=== PATIENT | female | born 1960 | race Caucasian/White ===

== ENCOUNTER → 2018-08-14 11:00 | Outpatient (CLI) | payer BC, SELFPAY ==
[2018-08-14 11:50] LABS: Basophils % 0.8 % (0.1-2.0); Eosinophils # 0.1 K/mm3 (0.0-0.4); Hematocrit 40.7 % (37.0-47.0); Hemoglobin 13.2 g/dL (12.2-16.2); Lymphocytes # 1.2 K/mm3 (0.7-4.5); Lymphocytes % 28.8 % (10-50); Mean Corpuscular HGB Conc 32.6 g/dL (31.8-35.4); Mean Corpuscular Hemoglobin 30.5 pg (27.0-31.2); Mean Corpuscular Volume 93.8 fl (81-99); Mean Platelet Volume 8.2 fl (7.4-10.4); Monocytes # 0.3 K/mm3 (0.1-1.0); Neutrophils # 2.6 K/mm3 (1.8-7.8); Neutrophils % 61.4 % (37.0-80.0); Platelet Count 208 K/mm3 (142-424); Red Blood Count 4.34 M/mm3 (4.20-5.40); Red Cell Distribution Width 13.6 % (11.5-17.5); White Blood Count 4.2 K/mm3 (4.8-10.8)
[2018-08-14 13:54] LABS: Alanine Aminotransferase 19 U/L (12-78); Albumin Level 3.8 gm/dL (3.4-5.0); Albumin/Globulin Ratio 1.2 (1.1-1.8); Alkaline Phosphatase 85 U/L (46-116); Anion Gap 14.3 mEq/L (5-15); Aspartate Amino Transferase 13 U/L (15-37); Bilirubin,Total 0.5 mg/dL (0.2-1.0); Blood Urea Nitrogen 14 mg/dL (7-18); Calcium 8.4 mg/dL (8.5-10.1); Carbon Dioxide 26 mmol/L (21.0-32.0); Chloride 105 mmol/L (98-107); Cholesterol 228 mg/dL (140-200); Creatinine,Serum 0.88 mg/dL (0.55-1.02); Estimated Glomerular Filt Rate 66 ml/min (>60); Free Thyroxine Index 2.8 ug/dL (5.93-13.13); GFR (African American) 80 ML/MIN (>60); Globulin 3.1 gm/dl (1.3-3.2); Glucose 101 mg/dL (74-106); HDL Cholesterol 46 mg/dL (29-89); LDL Cholesterol 149 mg/dL (0-130); Potassium 4.3 mmoL/L (3.5-5.1); Sodium 141 mmol/L (136-145); T4 (Thyroxine) 9.1 ug/dl (4.7-13.3); Total Protein,Serum 6.9 gm/dL (6.4-8.2); Triglycerides 167 mg/dL (30-200); Triiodothryronine (T3) Uptake 31 % (31-39); VLDL Cholesterol 33 mg/dL (0-40)
== END ==
PROVIDERS: Visit Provider Internal Medicine Adolescent Medicine
DX: E03.9 Hypothyroidism, unspecified (principal); I10 Essential (primary) hypertension; N32.81 Overactive bladder
CPT/HCPCS: 36415; 80053; 80061; 84436; 84443; 84479; 85025

== ENCOUNTER → 2019-09-07 14:13 | Outpatient (CLI) | payer BC, SELFPAY ==
--- NOTE | 2019-09-07 14:20 | XR_ITS ---
PROCEDURE: XR FOOT WT BEARING RT 3V CLINICAL INDICATION: foot pain COMPARISON: FTL3 FOOT-LT-3 VIEWS from 05/30/2017 FTR3 FOOT-RT-3 VIEWS from 05/30/2017 FINDINGS: No fracture or dislocation. No lytic or blastic change. There is normal mineralization. There are minimal osteoarthritic changes the 1st MTP joint. Prominent calcaneal spurs present as before with some calcification along the base of the spur. IMPRESSION: Mild degenerative changes. No change no acute finding Dictated by: Charlie Palomino MD 09/07/2019 15:34 Electronically signed by Charlie Palomino MD in [place] 09/07/2019 15:34
--- NOTE | 2019-09-07 14:20 | XR_ITS ---
PROCEDURE: XR FOOT WT BEARING LT 3V CLINICAL INDICATION: foot pain Left foot pain COMPARISON: FTL3 FOOT-LT-3 VIEWS from 05/30/2017 FTR3 FOOT-RT-3 VIEWS from 05/30/2017 FINDINGS: No fracture or dislocation. No lytic or blastic change. There is normal mineralization. There are mild osteoarthritic changes at the 1st MTP joint and at the navicular cuneiform joint. There is borderline pes planus. Flexion deformity involves the 2nd toe. Other findings:Coarse calcification is noted along the plantar arch posteriorly anterior to the mildly prominent calcaneal spur and may represent sequela from chronic plantar fasciitis. IMPRESSION: The degenerative changes with calcification along the plantar arch posteriorly which could be due to chronic plantar fasciitis Dictated by: Charlie Palomino MD 09/07/2019 15:30 Electronically signed by Charlie Palomino MD in [place] 09/07/2019 15:30
== END ==
PROVIDERS: PCP Internal Medicine Adolescent Medicine; Visit Provider Podiatrist
DX: M79.672 Pain in left foot (principal); M79.671 Pain in right foot
CPT/HCPCS: 73630

== ENCOUNTER → 2020-01-19 08:46 | Outpatient (CLI) | payer BC, SELFPAY ==
[2020-01-19 09:31] LABS: Basophils % 0.7 % (0.1-2.0); Eosinophils # 0.2 K/mm3 (0.0-0.4); Eosinophils % 4.5 % (0.1-12.0); Hematocrit 39.4 % (37.0-47.0); Hemoglobin 13.7 g/dL (12.2-16.2); Lymphocytes # 1.5 K/mm3 (0.7-4.5); Lymphocytes % 35.7 % (10-50); Mean Corpuscular HGB Conc 34.9 g/dL (31.8-35.4); Mean Corpuscular Hemoglobin 32.8 pg (27.0-31.2); Mean Platelet Volume 8.9 fl (7.4-10.4); Monocytes # 0.2 K/mm3 (0.1-1.0); Monocytes % 4.9 % (1.7-9.3); Neutrophils # 2.3 K/mm3 (1.8-7.8); Neutrophils % 54.1 % (37.0-80.0); Platelet Count 205 K/mm3 (142-424); Red Blood Count 4.19 M/mm3 (4.20-5.40); Red Cell Distribution Width 13.5 % (11.5-17.5); White Blood Count 4.3 K/mm3 (4.8-10.8)
[2020-01-19 10:10] LABS: Alanine Aminotransferase 11 U/L (12-78); Albumin Level 4.1 g/dl (3.5-5.0); Albumin/Globulin Ratio 1.5 (1.1-1.8); Alkaline Phosphatase 89 U/L (38-126); Anion Gap 8.9 mEq/L (5-15); Aspartate Amino Transferase 19 U/L (14-36); Bilirubin,Total 0.5 mg/dl (0.2-1.3); Blood Urea Nitrogen 16 mg/dl (7-17); Calcium 8.6 mg/dl (8.4-10.2); Carbon Dioxide 29 mmol/L (22.0-30.0); Chloride 102 mmol/L (98-107); Chol/HDL Ratio 4.2 (1-3.5); Cholesterol 222 mg/dl (140-200); Estimated Glomerular Filt Rate 57 ml/min (>60); GFR (African American) 68 ML/MIN (>60); Globulin 2.8 g/dL (1.3-3.2); Glucose 96 mg/dl (74-100); HDL Cholesterol 53 mg/dl (40-60); Potassium 3.9 mmoL/L (3.5-5.1); Sodium 136 mmol/L (136-145); Total Protein,Serum 6.9 g/dl (6.3-8.2); Triglycerides 157 mg/dl (30-150); VLDL Cholesterol 31 mg/dL (0-40)
[2020-01-19 10:45] LABS: Thyroid Stimulating Hormone 0.47 uIU/mL (0.465-4.68)
== END ==
PROVIDERS: Visit Provider Internal Medicine Adolescent Medicine
DX: E03.9 Hypothyroidism, unspecified (principal); E78.5 Hyperlipidemia, unspecified
CPT/HCPCS: 36415; 80053; 80061; 84443; 85025

== ENCOUNTER → 2020-05-18 14:31 | Outpatient (CLI) | payer BC, SELFPAY ==
--- NOTE | 2020-05-18 14:40 | MR_ITS ---
PROCEDURE: MR FOOT LT WO/W CON CLINICAL INDICATION: soft tissue mass SWELLING IN 2ND AND THIRD TOES.PAINFUL TO WALK. SYMPTOMS X2YRS. NO INJURY. COMPARISON: CR FTL3 FOOT-LT-3 VIEWS from 05/30/2017 CR XR FOOT WT BEARING LT 3V from 09/07/2019 TECHNIQUE: Routine multiplanar multi echo sequences are performed without and with gadolinium enhancement. FINDINGS: The there is a small amount fluid in the ankle joint. The ligaments and tendons appear intact. There is increased T2 signal the navicular with some sub chondral cystic changes consistent with osteoarthritic change. There is also slight increased T2 signal within the dorsal aspect of the medial cuneiform. Small amount fluid is present in the intertarsal and tarsal metatarsal region. There is focal increased T2 signal involving the proximal shaft of the 2nd and 3rd metatarsals. These areas do show some enhancement as well. Osteoarthritic changes are present at the 1st metatarsal tarsal junction. There is some focal thickening of the proximal aspect of the plantar fascia. There is some ossification noted in this region on the radiograph. IMPRESSION: 1. Osteoarthritic changes of the navicular cuneiform and talonavicular area. 2. Focal increased T2 signal of the proximal shaft of the 2nd and 3rd metatarsals which may be due to underlying stress reaction/stress fracture 3. Thickening of the proximal aspect of the plantar fascia corresponding to an area of ossification on the radiograph which could represent sequela from prior plantar fasciitis or old injury. Dictated by: Charlie Palomino MD 05/23/2020 09:05 Charlie Palomino MD in [place] 05/23/2020 09:05
--- NOTE | 2020-05-18 14:40 | MR_ITS ---
PROCEDURE: MR FOOT RT WO/W CON CLINICAL INDICATION: soft tissue mass RT FOOT SWELLING ON DORSAL ASPECT OF FOOT AROUND 2ND-4TH METATARSAL. PAINFUL TO WALK. SYMPTOMS X2YRS. NO INJURY. COMPARISON: CR FTR3 FOOT-RT-3 VIEWS from 05/30/2017 CR XR FOOT WT BEARING RT 3V from 09/07/2019 TECHNIQUE: Routine multiplanar multi echo sequences are performed without gadolinium enhancement. FINDINGS: Osteoarthritic changes are present in the midfoot with mild bone marrow edema at the navicular, cuboid, and lateral cuneiform which may be due to underlying inflammatory changes from osteoarthritic change. There is also some contrast enhancement of the soft tissues lateral to the midfoot and centrally at the inter tarsal region. Underlying inflammatory changes are considered. No fracture or dislocation. No obvious ligamentous abnormality or tendinous abnormality. No abnormal fluid collections are evident. There is a prominent calcaneal spur noted on the radiograph with some isointensity in this region on the MRI corresponding to the spur. IMPRESSION: Mild osteoarthritic changes of the midfoot with some nonspecific increased T2 signal of the tarsal bones and mild enhancement of the tarsal bones and some adjacent soft tissues nonspecific possibly related underlying inflammatory osteoarthritic changes Widening of the proximal aspect of the plantar fascia corresponding to an area of prominent calcaneal spur. Dictated by: Charlie Palomino MD 05/23/2020 09:12 Charlie Palomino MD in [place] 05/23/2020 09:12
[2020-05-18 14:50] LABS: Blood Urea Nitrogen 16 mg/dl (7-17); Estimated Glomerular Filt Rate 64 ml/min (>60); GFR (African American) 77 ML/MIN (>60)
== END ==
PROVIDERS: PCP Internal Medicine Adolescent Medicine; Visit Provider Podiatrist
DX: R22.42 Localized swelling, mass and lump, left lower limb (principal); R22.41 Localized swelling, mass and lump, right lower limb
CPT/HCPCS: 36415; 73720; 82565; 84520; A9576

== ENCOUNTER → 2020-11-10 15:50 | Outpatient (CLI) | payer BC, SELFPAY ==
[2020-11-10 16:49] LABS: Basophils % 0.7 % (0.1-2.0); Eosinophils # 0.2 K/mm3 (0.0-0.4); Eosinophils % 2.9 % (0.1-12.0); Hematocrit 39.4 % (37.0-47.0); Hemoglobin 13.6 g/dL (12.2-16.2); Lymphocytes # 1.4 K/mm3 (0.7-4.5); Lymphocytes % 28.7 % (10-50); Mean Corpuscular HGB Conc 34.5 g/dL (31.8-35.4); Mean Corpuscular Hemoglobin 31.7 pg (27.0-31.2); Mean Platelet Volume 8.3 fl (7.4-10.4); Monocytes # 0.2 K/mm3 (0.1-1.0); Monocytes % 4.2 % (1.7-9.3); Neutrophils # 3.2 K/mm3 (1.8-7.8); Neutrophils % 63.5 % (37.0-80.0); Platelet Count 206 K/mm3 (142-424); Red Blood Count 4.29 M/mm3 (4.20-5.40); Red Cell Distribution Width 13.2 % (11.5-17.5)
[2020-11-10 17:16] LABS: Alanine Aminotransferase 12 U/L (12-78); Albumin Level 4.2 g/dl (3.5-5.0); Albumin/Globulin Ratio 1.6 (1.1-1.8); Alkaline Phosphatase 77 U/L (38-126); Aspartate Amino Transferase 19 U/L (14-36); Bilirubin,Total 0.3 mg/dl (0.2-1.3); Blood Urea Nitrogen 13 mg/dl (7-17); Calcium 8.8 mg/dl (8.4-10.2); Carbon Dioxide 25 mmol/L (22.0-30.0); Chloride 107 mmol/L (98-107); Estimated Glomerular Filt Rate 73 ml/min (>60); GFR (African American) 88 ML/MIN (>60); Globulin 2.6 g/dL (1.3-3.2); Glucose 113 mg/dl (74-100); Sodium 137 mmol/L (136-145); Total Protein,Serum 6.8 g/dl (6.3-8.2)
[2020-11-10 17:47] LABS: Thyroid Stimulating Hormone 3.56 uIU/mL (0.465-4.68)
[2020-11-10 17:57] LABS: 25-OH Vitamin D, Total < 12.8 ng/mL (30-100)
[2020-11-10 18:05] LABS: Vitamin B12 374 pg/mL (239-931)
== END ==
PROVIDERS: Visit Provider Internal Medicine Adolescent Medicine
DX: E03.9 Hypothyroidism, unspecified (principal); E55.9 Vitamin D deficiency, unspecified; R53.83 Other fatigue; R53.81 Other malaise
CPT/HCPCS: 36415; 80053; 82306; 82607; 83735; 84443; 85025

== ENCOUNTER → 2021-07-26 10:54 | Outpatient (CLI) | payer BC, SELFPAY ==
--- NOTE | 2021-07-26 | CA_ITS ---
APPROVED REPORT EXAM: Comprehensive 2D, Doppler, and color-flow Echocardiogram Wood Setter: Marisa Mistry RT(R) Ht: 5 ft 4 in Wt: 226lbs BSA: 2.06 BP: 130/76 mmHg Indications: Abn EKG, HTN, palpitations, fatigue, HTN, family history of HD, preop clearance knee surgery, obesity. 2D Dimensions LVOT 2.01 cm (M/F) 1.5-2.5 LA Volume 35.60 mL LA Volume Index 17.28 mL/m2 (M/F) 16-34 M-Mode Dimensions RVDd 3.01 cm (0.9-2.6) LA Diam 3.28 cm (1.9-4.0) LVDd 3.89 cm (3.5-5.7) Ao Diam 1.94 cm (2.0-3.7) LVDs 3.16 cm (3.5-5.7) IVSd 0.82 cm (0.6-1.1) PWd 0.95 cm (0.6-1.1) EF (Teich) 39.40% FS 18.80% EDV (Teich) 65.50 mL ESV (Teich) 39.70 mL LV Diastology E Decel Time 210.00 (160-240 msec) E/A Ratio 0.7 MED E' 6.90 (< 7 cm/sec) E'/MED E' Ratio 8.83 (>14) LAT E' 7.00 (<10 cm/sec) E/LAT E' Ratio 8.70 (>14) Mitral Valve MV E Max Polo. 61.00 (40-130 cm/s) MV A Velocity 86.00 (40-130 cm/s) E/A Ratio 0.71 MV Decel. Time 210.00 (160-240 ms) MV PHT 62.00 ms Left Ventricle Technically difficult study because of the patient factors and poor acoustic windows. Left atrium is mildly enlarged, left ventricle is normal size, mild concentric left ventricular hypertrophy, visually estimated ejection fraction 55% with no obvious regional wall motion abnormality in the obtained views, endocardial surfaces are poorly visualized. Grade 1 diastolic dysfunction seen without tissue Doppler evidence of base left atrial pressure. Right Ventricle Right atrium and right ventricle are mildly enlarged with normal contractility. Aortic Valve Aortic valve is poorly visualized, Doppler is not indicative of significant aortic stenosis or aortic insufficiency. Mitral Valve Mitral leaflets are minimally thickened, there is mild mitral regurgitation. Tricuspid Valve Tricuspid valve grossly normal, there is mild tricuspid regurgitation, tricuspid regurgitation jet was inadequate for calculation of the right ventricular systolic pressure. Pulmonic Valve Pulmonic valve is poorly visualized. Great Vessels Aortic root is normal size. Inferior vena cava is poorly visualized. Pericardium No significant pericardial effusion noted. Conclusion 1. Mild biatrial enlargement, normal left ventricular size, mild concentric left ventricular hypertrophy, visually estimated ejection fraction 55% with no regional wall motion abnormality, grade 1 diastolic dysfunction seen without tissue Doppler evidence of a left atrial pressure. Endocardial surfaces are very poorly visualized. 2. Mildly enlarged right ventricle with normal contractility. 3. Mild mitral and tricuspid regurgitation. 4. No significant pericardial effusion noted. Electronically signed by : Bandar Riggins MD 07/26/2021 20:07:56
== END ==
PROVIDERS: PCP Internal Medicine Adolescent Medicine; Visit Provider Internal Medicine Adolescent Medicine
DX: I10 Essential (primary) hypertension (principal); R94.31 Abnormal electrocardiogram [ECG] [EKG]
CPT/HCPCS: 93306

== ENCOUNTER → 2021-08-08 06:37 | Outpatient (CLI) | payer BC, SELFPAY ==
--- NOTE | 2021-08-08 | CA_ITS ---
APPROVED REPORT Exam: Pharmacologic Technologist: Lashawn Davila Ht: 5 ft 4 in Wt: 209 lbs BSA: 1.99 m2 HR: 66 bpm BP: 144/73 mmHg Indications: Abnormal EKG Medical History Medications: Metoprolol,,,,, Estradiol,,,,, FluTICASONE,,,,, Levothyoxine,,,,, Stress Test Details Test: LEXISCAN HR Resting HR: 76 bpm Max Heart Rate (APMHR): 158.468899 bpm Max HR Achieved: 101 bpm Target HR (85% APMHR): 134.356313 bpm % of APMHR: 63.92 Recovery HR: 76 bpm BP Resting BP: 144.0/73.0 mmHg Max BP: 164.0/62.0 mmHg Recovery BP: 153.0/63.0 mmHg ECG Resting ECG: Normal sinus rhythm, ST abormalities inferiorly and laterally. Clinical Exercise duration: 04:00 min Highest Stage Achieved: Exercise capacity: 1.0 METs Stress ECG Conclusion Symptoms: Shortness of air, mild malaise. No chest pain. Arrhythmias/Ectopy: None ST-T Changes: Exaggeration of baseline ST abnormalities. Conclusion: Non-diagnostic Lexiscan stress. Myoview images reported separately. Electronically signed by : Bandar Riggins MD 08/08/2021 20:39:41
--- NOTE | 2021-08-08 07:16 | NM_ITS ---
APPROVED REPORT Exam: Nuclear Stress Test Indication: Abnormal EKG, Pre op, HTN, Family history Patient Location: Outpatient Stress Tech: Lashawn Davila NM Tech:Bhakti Hester, ARRT, RT (R)(N) Ht: 5 ft 4 in Wt: 209 lbs Bra Size: 34B HR: 66 bpm BP: 144/73 mmHg BSA: 1.99 m2 BMI: 35.8 History: Abnormal EKG, Pre op, HTN, Family history Procedure: Patient received a 0.4 mg of intravenous Lexiscan, resting heart rate 66 bpm, resting blood pressure 144/73 mmHg, with Lexiscan maximum heart rate achived was 90 bpm which is Less than 85 % of the maximum predicted heart rate and blood pressure was 161/72 mmHg. With Lexiscan, patient denied any complaint of chest pain. Electrocardiogram Resting electrocardiogram shows sinus rhythm, with Lexiscan there is less than 1.[address] segment depression noted from the baseline EKG. The EKG portion of the Lexiscan is nondiagnostic. Cardiac Stress and Resting SPECT Images: Cardiac Stress and Resting SPECT images were obtained using technetium 99m Myoview 32.5 mCi stress and 10.62 mCi at rest. Gated SPECT for analysis of segmental wall motion and calculation of the ejection fraction also done. Prone images were also obtained. Cardiac stress and rest SPECT images show uniform myocardial activity without segmental perfusion abnormality, computer derived ejection fraction is over 65% with no regional wall motion abnormality, there is transient ischemic dilatation of the left ventricle seen. Conclusion: 1. The EKG portion of the Lexiscan is nondiagnostic. 2. No scintigraphic evidence of reversible ischemia seen, computer derived ejection fraction over 65% with no regional wall motion abnormality, there is transient ischemic dilatation of the left ventricle seen. Raising the concern for presence of balanced ischemia, other causes for transient ischemic dilatation include hypertensive heart disease, elevated left ventricular end-diastolic pressure, diabetes mellitus and microvascular disease. Clinical correlation is recommended. 3. Abnormal Lexiscan Myoview study. Electronically signed by : Bandar Riggins MD 08/08/2021 21:04:05
--- NOTE | 2021-08-08 08:08 | HMH.ITSHM ---
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 []METOPROLOL LEVOTHYROXINE FLUTICASONE ESTRADIOL
== END ==
PROVIDERS: PCP Internal Medicine Adolescent Medicine; Visit Provider Internal Medicine Adolescent Medicine
DX: I10 Essential (primary) hypertension (principal); R94.31 Abnormal electrocardiogram [ECG] [EKG]
CPT/HCPCS: 78452; 93017; A9502; J2785

== ENCOUNTER → 2021-08-11 14:42 | Outpatient (CLI) | payer BC, SELFPAY ==
[2021-08-11 15:04] LABS: Basophils # 0.2 K/mm3 (0-0.2); Basophils % 3.3 % (0.1-2.0); Eosinophils # 0.1 K/mm3 (0.0-0.4); Eosinophils % 2.1 % (0.1-12.0); Hematocrit 43.8 % (37.0-47.0); Hemoglobin 14.4 g/dL (12.2-16.2); Lymphocytes # 1.4 K/mm3 (0.7-4.5); Lymphocytes % 27.8 % (10-50); Mean Corpuscular HGB Conc 32.8 g/dL (31.8-35.4); Mean Corpuscular Hemoglobin 31.9 pg (27.0-31.2); Mean Corpuscular Volume 97.2 fl (81-99); Mean Platelet Volume 8.9 fl (7.4-10.4); Monocytes # 0.2 K/mm3 (0.1-1.0); Monocytes % 4.7 % (1.7-9.3); Neutrophils # 3.2 K/mm3 (1.8-7.8); Neutrophils % 62.2 % (37.0-80.0); Platelet Count 249 K/mm3 (142-424); Red Cell Distribution Width 13.9 % (11.5-17.5); White Blood Count 5.2 K/mm3 (4.8-10.8)
[2021-08-11 16:48] LABS: Anion Gap 11.1 mEq/L (5-15); Blood Urea Nitrogen 11 mg/dl (7-17); Calcium 9.3 mg/dl (8.4-10.2); Carbon Dioxide 26 mmol/L (22.0-30.0); Chloride 106 mmol/L (98-107); Estimated Glomerular Filt Rate 63 ml/min (>60); GFR (African American) 77 ML/MIN (>60); Glucose 93 mg/dl (74-100); Potassium 4.1 mmoL/L (3.5-5.1); Sodium 139 mmol/L (136-145)
== END ==
PROVIDERS: Visit Provider Internal Medicine Cardiovascular Disease
DX: Z01.810 Encounter for preprocedural cardiovascular examination (principal); Z11.52 Encounter for screening for COVID-19
CPT/HCPCS: 36415; 80048; 85025; C9803; U0003; U0005

== ENCOUNTER 2021-08-12 20:43 | Emergency (ER) | payer BC, SELFPAY ==
[2021-08-12 20:47] VITALS: BP 154/74; PULSE 89; RESP 18; TEMP 37.7; O2SAT 97; BMI 36.7
[2021-08-12 21:00] VITALS: BP 154/74; PULSE 89; RESP 18; TEMP 37.7
--- NOTE | 2021-08-12 21:01 | HMH.EDUTC ---
[facility] [place] Disposition Clinical Impression: Viral syndrome, Exposure to COVID-19 virus Disposition: Home, Self-Care Condition on Discharge: Good Instructions: DI for COVID-19 (Suspected or Confirmed ), Preventing the Spread of Coronavirus Discharge Instructions Additional Instructions: Drink plenty of fluids. Take tylenol for pain or fever. Return if you begin to have difficulty breathing. Follow up with your regular doctor. GO TO THE ER FOR ANY WORSENING SYMPTOMS Quarantine until you know the results of your covid-19 test. Notify your school or workplace of your results and follow their instructions regarding return to work/school. Referrals: Rubio Han MD [Primary Care Provider] - Time of Disposition: 21:12 Medical Decision Making - Medical Records Medical records reviewed: No: I reviewed the patient's medical records. - Foreign Inquiry Pt receiving controlled substance: No Vital Signs: 08/12/21 20:47 08/12/21 21:00 Temperature 99.9 F H 99.9 F H Temperature Source Oral Pulse Rate 89 Pulse Rate [Left] 89 Respiratory Rate 18 18 Blood Pressure 154/74 H Blood Pressure [Right Arm] 154/74 H Blood Pressure Mean [Right Arm] 100 02 Sat by Pulse Oximetry 97 [facility] [place] HPI - General Stated complaint: covid test Time Seen by Provider: 08/12/21 21:00 Mode of Arrival: Ambulatory Source of Information: Patient Limitations: No Limitations Description of Symptoms (Recalled from Triage Doc. by RN): pt c/o her eyes burning and a HU. pts is covid positive. HEENT Symptoms (Recalled from RN notes): Yes (HU) Resp Symptoms (Recalled from RN notes): No Skin Symptoms (Recalled from RN notes): No MS Symptoms (Recalled from RN notes): No Functional Status (Recalled from RN notes): wnl - History of Present Illness Provider Complaint: She has been having body aches, chilling (but no documented fever), head ache, and a scratchy sore throat since last night. Her tested positive for covid-19 yesterday. - Related Data Home Medications Medication Instructions Recorded Confirmed estradiol 0.075 mg/24 hr 1 patch TOPICAL each 09/07/19 09/07/19 semiweekly transdermal patch fluticasone propionate 50 INTRANASAL 09/07/19 09/07/19 mcg/actuation nasal spray,suspension levothyroxine 112 mcg tablet 112 mcg PO DAILY tab 09/07/19 09/07/19 metoprolol succinate 25 mg 12.5 mg PO ONCE tab 08/11/21 tablet,extended release 24 hr Allergies Allergy/AdvReac Type Severity Reaction Status Date / Time SULFA (sulfonamide) Allergy Unknown Uncoded 09/07/19 13:26 - Worker's Comp Is this a Worker's Comp case?: No [facility] History - Hepatitis A Screen Drug use history?: No High risk sexual behaviors?: No History of sexually transmitted infection?: No Currently employed?: No Childcare worker?: No Do you have indoor plumbing?: Yes Do you have electricity?: Yes Attestation statement:: This patient has been screened for Hepatitis A risk factors. I have reviewed the patient's past medical history: Yes Other Medical History: Reports: Hypothyroidism Laterality Cases: Bilateral: Other Other Surgeries: Yes: Cholecystectomy, , Hysterectomy-Total, Thyroidectomy, Other Amputation: No Fractures: No - Social History Smoking Status: Never smoker Alcohol Intake: never Substance Use Type: denies use Occupational Status: retired Family Hx:: Cancer, Diabetes, Hyperlipidemia, Hypertension, Thyroid Disorder ROS Obtained: Yes All systems reviewed & no additional complaints - Constitutional Constitutional: Reports body ache, Reports chills, Denies fever(s), Reports poor appetite, Reports malaise - Eyes Eyes: Denies eye discharge - ENT Ears, Nose, Mouth, and Throat: Reports as per HPI - Cardiovascular Cardiovascular: Denies chest pain - Respiratory Respiratory: Denies chest congestion, Reports cough, Denies dyspnea, Denies stridor, Denies wheezing Physical Exam - General G
== END 2021-08-12 21:28 | disposition home or self-care (01) ==
PROVIDERS: Emergency Provider Nurse Practitioner Family; PCP Internal Medicine Adolescent Medicine
DX: U07.1 COVID-19 (principal); E03.9 Hypothyroidism, unspecified
CPT/HCPCS: 99202; C9803; G0463; U0003; U0005

== ENCOUNTER → 2021-09-30 11:52 | Outpatient (CLI) | payer BC, SELFPAY | PROVIDERS: PCP Internal Medicine Adolescent Medicine; Visit Provider Nurse Practitioner Family | DX: Z01.818 Encounter for other preprocedural examination (principal); Z11.52 Encounter for screening for COVID-19 | CPT/HCPCS: C9803; U0003; U0005 ==

== ENCOUNTER → 2023-01-18 11:46 | Outpatient (CLI) | payer BC, SELFPAY ==
[2023-01-18 12:13] LABS: Basophils % 0.5 % (0.1-2.0); Eosinophils # 0.3 K/mm3 (0.0-0.4); Eosinophils % 4.9 % (0.1-12.0); Hemoglobin 13.3 g/dL (12.2-16.2); Lymphocytes # 1.6 K/mm3 (0.7-4.5); Lymphocytes % 29.6 % (10-50); Mean Corpuscular HGB Conc 32.4 g/dL (31.8-35.4); Mean Corpuscular Volume 92.7 fl (81-99); Mean Platelet Volume 8.1 fl (7.4-10.4); Monocytes # 0.3 K/mm3 (0.1-1.0); Monocytes % 4.7 % (1.7-9.3); Neutrophils # 3.3 K/mm3 (1.8-7.8); Neutrophils % 60.4 % (37.0-80.0); Platelet Count 209 K/mm3 (142-424); Red Blood Count 4.43 M/mm3 (4.20-5.40); Red Cell Distribution Width 13.9 % (11.5-17.5); White Blood Count 5.5 K/mm3 (4.8-10.8)
[2023-01-18 13:16] LABS: Hemoglobin A1C 5.3 % (4.0-6.0)
[2023-01-18 13:17] LABS: Alanine Aminotransferase 24 U/L (12-78); Albumin Level 3.9 g/dl (3.5-5.0); Albumin/Globulin Ratio 1.6 (1.1-1.8); Alkaline Phosphatase 101 U/L (38-126); Anion Gap 12.2 mEq/L (5-15); Aspartate Amino Transferase 23 U/L (14-36); Bilirubin,Total 0.6 mg/dl (0.2-1.3); Blood Urea Nitrogen 14 mg/dl (7-17); Calcium 8.5 mg/dl (8.4-10.2); Carbon Dioxide 25 mmol/L (22.0-30.0); Chloride 108 mmol/L (98-107); Cholesterol 216 mg/dl (140-200); Estimated Glomerular Filt Rate 72 ml/min (>60); GFR (African American) 88 ML/MIN (>60); Globulin 2.5 g/dL (1.3-3.2); Glucose 105 mg/dl (74-100); HDL Cholesterol 54 mg/dl (40-60); Potassium 4.2 mmoL/L (3.5-5.1); Sodium 141 mmol/L (136-145); Total Protein,Serum 6.4 g/dl (6.3-8.2); Triglycerides 263 mg/dl (30-150); VLDL Cholesterol 53 mg/dL (0-40)
[2023-01-18 13:28] LABS: Direct LDL Cholesterol 102.85 mg/dL (100-129)
[2023-01-18 13:33] LABS: 25-OH Vitamin D, Total 32.1 ng/mL (30-100)
[2023-01-18 14:05] LABS: Vitamin B12 395 pg/mL (239-931)
[2023-01-18 15:07] LABS: Thyroid Stimulating Hormone 4.33 uIU/mL (0.465-4.68)
== END ==
PROVIDERS: PCP Internal Medicine Adolescent Medicine; Visit Provider Internal Medicine Adolescent Medicine
DX: E03.9 Hypothyroidism, unspecified (principal); I10 Essential (primary) hypertension; E55.9 Vitamin D deficiency, unspecified; Z84.89 Family history of other specified conditions; Z79.899 Other long term (current) drug therapy
CPT/HCPCS: 36415; 80053; 80061; 82306; 82607; 83036; 84443; 85025

== ENCOUNTER 2023-11-05 14:00 | Outpatient (CLI) | payer MEDICARE, BC, SELFPAY ==
--- NOTE | 2023-11-05 14:18 | CA_ITS ---
FINAL REPORT TECHNIQUE: Duplex color Doppler with spectral analysis performed of the lower extremities. CLINICAL HISTORY: CLAUDICATION,PAIN TOP OF FEET,EDEMA COMPARISON: None FINDINGS: RIGHT LOWER EXTREMITY: Velocities cm/sec: DENTAL CERAMIST ASSISTANT: 116 SFA Prox: 112 SFA Mid: 105 SFA Dist: 79 Rae: 91 AWNING HANGER: 103 SOWMYA: 64 Waveforms are triphasic proximally, biphasic at and below the popliteal artery. LEFT LOWER EXTREMITY: Velocities cm/sec: DENTAL CERAMIST ASSISTANT: 120 SFA Prox: 112 SFA Mid: 103 SFA Dist: 82 Rae: 63 AWNING HANGER: 101 SOWMYA: 42 Waveforms are triphasic proximally, biphasic at and below the popliteal artery. IMPRESSION: No significant peripheral artery disease. Reviewed, Interpreted and Dictated by Marvin Eastman MD Transcribed by Tia London Authenticated and [facility]
== END 2023-11-05 23:59 | disposition home or self-care (01) ==
LOC: RT 14:03
PROVIDERS: PCP Internal Medicine Adolescent Medicine; Visit Provider Internal Medicine Adolescent Medicine
DX: I73.9 Peripheral vascular disease, unspecified (principal)
CPT/HCPCS: 93925

== ENCOUNTER 2024-09-07 15:00 | Outpatient (RCR) | payer MEDICARE, BC, SELFPAY | END 2024-09-07 23:59 | disposition home or self-care (01) | LOC: PT 15:00 | PROVIDERS: PCP Internal Medicine Adolescent Medicine; Visit Provider Physician Assistant | DX: Z96.652 Presence of left artificial knee joint (principal) | CPT/HCPCS: 97014; 97110; 97140; 97163; 97530; G0283 ==

== ENCOUNTER 2024-10-09 10:00 | Outpatient (RCR) | payer MEDICARE, BC, SELFPAY | END 2024-10-09 23:59 | disposition home or self-care (01) | LOC: PT 10:00 | PROVIDERS: PCP Internal Medicine Adolescent Medicine; Visit Provider Physician Assistant | DX: Z96.652 Presence of left artificial knee joint (principal) | CPT/HCPCS: 97110; 97530 ==

== ENCOUNTER 2025-06-08 13:51 | Outpatient (CLI) | payer MEDICARE, BC, SELFPAY ==
--- OUTSIDE RECORDS SUMMARY | 2024-10-17 16:30 | XMS_ITS ---
Author Organization [facility] Address [address] [place] [address] Care Team Providers Care Php Software Engineer Name Role Phone Rubio Han Primary Care Provider Migration, Provider Unavailable Unavailable Allergies Allergen (clinical drug ingredient) Drug/Non Drug Allergy documented on EMR Reaction Allergy Type Onset Date Status SULFA (uncoded) Unknown Allergy Acti ve REASON FOR VISIT [facility] To [facility] Conversion Encounter Medications Medication SIG (Take, Route, Frequency, Duration) Notes Start Date End Date Status Losartan Potassium-HCTZ 100-25 MG 1 tab(s) orally once a day; Duration: 30 days Active Vitamin D (Ergocalciferol) 1.25 MG (73939 UT) 1 cap(s) orally twice weekly; Duration: 84 days Active Metoprolol Succinate ER 50 MG 1 tab(s) orally once a day; Duration: 30 days Active Synthroid 100 MCG 1 tab(s) orally once a day; Duration: 90 days Active Arthritis Pain Reliever 1 % 2 gm applied topically 4 times a day; Duration: 30 days prn Active Fluticasone Propionate 50 MCG/ACT as directed in each nostril once a day; Duration: 30 days Active Promethazine-DM 6.25-15 MG/5ML 5 mL orally every 6 hours; Duration: 10 days 09/23/2024 Active Aspirin Low Dose 81 MG 1 tab(s) orally t wice a day Active Encounters Encounter Location Date Provider Diagnosis [facility] [address] [place], [place] [address] 10/17/2024 Provider Migration Viral bronchitis J20.8 Assessments Encounter Date Diagnosis (ICD Code) Assessment Notes Treatment Notes Treatment Clinical Notes Section Notes 10/17/2024 Viral bronchitis (ICD-10 - J20.8) Plan Of Treatment Medication Medication Name Sig Start Date Stop Date Notes Losartan Potassium-HCTZ 100- 25 MG 1 tab(s) orally once a day; Duration: 30 days Fluticasone Propionate 50 MCG/ACT as directed in each nostril once a day; Duration: 30 days Promethazine-DM 6.25-15 MG/5ML 5 mL oral ly every 6 hours; Duration: 10 days 09/23/2024 Next Appt Details Provider Name:Rubio Han, 08/03/2025 04:15:00 PM, [address] [place] [address], [id number], Progress Notes * Arielle SCHULERaDOB:1960 ([age] yo F)Acc No.[id number]:10/17/2024 Patient: Alina WARD Provider: Alberto Marcial :1960 A ge:64 Y S ex:Female Date:10/17/2024 Address:[address] [place], [place] [id number] Pcp:Rubio Han Subjective: * Chief Complaints: * 1 . [facility] To [facility] Conversion Encounter. * Medical History: * Medications: T aking Aspirin Low Dose 81 MG Tablet Delayed Release 1 tab(s) orally twice a day , Taking Synthroid 100 MCG Tablet 1 tab(s) orally once a day , Taking Arthritis Pain Reliever 1 % Gel 2 gm applied topically 4 times a day , Notes to Pharmacist: prn, Taking Vitamin D (Ergocalciferol) 1.25 MG (92596 UT) Capsule 1 cap(s) orally twice weekly , Taking Metoprolol Succinate ER 50 MG Tablet Extended Release 24 Hour 1 tab(s) orally once a day * Allergies: S ULFA. Objective: * Vitals: Assessment: * Assessment: 1. V iral bronchitis - J20.8 (Primary) Plan: * Treatment: 2. O thers Start Fluticasone Propionate Suspension, 50 MCG/ACT, as directed, in each nostril, once a day, 30 days, 1, Refills 3; S tart Losartan Potassium-HCTZ Tablet, 100-25 MG, 1 tab(s), orally, once a day, 30 days, 30, Refills 1. * * Electronic signature of Prov ider Migration on 06/08/2025 at 01:56 PM EST Sign off status: Pending * Provider: Alberto shahid Migration Date: 0 10/17/2024 Generated for Morgan correa/Mahesh/Teodoroitting on: 08/08/2024 01:56 PM EST
--- OUTSIDE RECORDS SUMMARY | 2025-06-01 11:30 | XMS_ITS ---
Author Organization [facility] Address [address] [place] [address] Care Team Providers Care Modeling Teacher Name Role Phone Rubio Han Primary Care Provider [phone] Allergies Allergen (clinical drug ingredient) Drug/Non Drug Allergy documented on EMR Reaction Allergy Type Onset Date Status SULFA (uncoded) Unknown Allergy Acti ve REASON FOR VISIT med check, concerns of collarbone, constipation Medications Medication SIG (Take, Route, Frequency, Duration) Notes Start Date End Date Status Metoprolol Succinate ER 25 MG TAKE 1/2 TABLET BY MOUTH EVERY DAY; Duration: 90 Active Arthritis Pain Reliever 1 % 2 gm applied topically 4 times a day; Duration: 30 days prn Active Diclofenac Sodium 50 MG 1 tablet as need ed Orally Twice a day; Duration: 30 days 03/25/2025 Active Losartan Potassium-HCTZ 100-25 MG TAKE 1 TABLET BY MOUTH EVERY DAY; Duration: 30 Active Promethazine-DM 6.25-15 MG/5ML 5 mL orally every 6 hours; Duration: 10 days 09/23/2024 Active Acetaminophen-Codeine 300-30 MG 1 tablet as needed Orally every 6 hrs; Duration: 10 days 11/23/2024 Active Pregabalin 50 MG 1 capsule Orally twi ce a day as needed for nerve pain; Duration: 90 days 01/06/2025 Active Vitamin D (Ergocalciferol) 1.25 MG (66900 UT) 1 cap(s) orally twice weekly; Duration: 84 days Active Fluticasone Propionate 50 MCG/ACT as directed in each nostril once a day; Duration: 30 days Active Aspirin Low Dose 81 MG 1 tab(s) orally t wice a day Active Synthroid 112 MCG 1 tab(s) orally once a day; Duration: 90 days Active Ozempic (0.25 or 0.5 MG/DOSE) 2 MG/3ML as directed Subcutaneous Active Problems Problem Type SNOMED Code ICD Code Onset Dates Problem Status W/U Status Risk Notes Problem Arthritis of right hip (9777323774876 101) Arthritis of right hip (M16.11) Active confirmed Vital Signs Temperature 98 degrees Fahrenheit 06/01/2025 Blood pressure systolic 130 mm Hg 06/01/20 25 Blood pressure diastolic 80 mm Hg 025 Heart Rate 82 /min 06/01/2025 Height 5 ft 4 in in 06/01/2025 Weight 194 lbs 06/01/2025 BMI 33.3 kg/m2 06/01/2025 Encounters Encounter Location Date Provider Diagnosis [address] [address] 06/01/2025 Rubio Han Clavicle enlargement M89.319 ; Constipation, chronic K59.09 ; Morbid obesity E66.01 and Arthritis of right hip M16.11 Assessments Encounter Date Diagnosis (ICD Code) Assessment Notes Treatment Notes Treatment Clinical Notes Section Notes 06/01/2025 Clavicle enlargement (ICD-10 - M89.319) Asymmetry noted. Will check x-rays of clavicle and sternum and reevaluate. 06/01/2025 Constipation, chronic (ICD-10 - K59.09) Discussed drinking water. Discussed doing Senokot twice daily and using MiraLAX every morning with a hot beverage. She will try this. This seems to be more of a side effect of Ozempic but is manageable if she pays attention to nutrition and hydration 06/01/2025 Morbid obesity (ICD-10 - E66.01) Very successful with even low-dose semaglutide, gave samples for 2 more months and 0.25 weekly semaglutide 06/01/2025 Arthritis of right hip (ICD-10 - M16.11) Injection helped temporarily. She will call back to [facility] and see about other options for further intervention Plan Of Treatment Treatment Notes Assessment Notes Clavicle enlargement Asymmetry noted. Wi ll check x-rays of clavicle and sternum and reevaluate. Constipation, chronic Discussed drinking water. Discussed doing Senokot twice daily and using MiraLAX every morning with a hot beverage. She will try this. This seems to be more of a side effect of Ozempic but is manageable if she pays attention to nutrition and hydration Morbid obesity Very successful with even low-dose semaglutide, gave samples for 2 more months and 0.25 weekly semaglutide Arthritis of right hip Injection helped temporarily. She will call back to [facility] and see about other options for further intervention Pending Test Test Name Order Date X ray : Clavicle 06/01/2025 X ray : Sternum 06/01/2025 Next Appt Details Follow Up: prn, Reason: Provider Name:Rubio Han, 08/03/2025 04:15:00 PM, [address] [place] [address], [id number], Progress Notes * Ariel SCHULERB:1960 ([age] yo F)Acc No.[id number]:06/01/2025 Progress Notes Patient: Bertha Alina TAYLOR Provider: Severiano Han MD :1960 A ge:65 Y S ex:Female Date:06/01/2025 Address:[address] [place] [address] SISI Silverio [id number] Subjective: * Chief Complaints: * 1 . Med check. 2. Concerns of collarbone. 3. Constipation. * HPI: g en: Here to follow-up her efforts at weight loss and her other medical problems. Ozempic is under great job for her. It is prohibitively expensive and I have been providing her with some samples because of her morbid obesity and multiple comorbidities that mandate better weight loss. She is feels good with this. Her foot pain is almost resolved. She does have hip pain, had a shot in the hip at [facility] about 5 days ago, and did well but today's it is little worse. She complains of constipation, this is manageable if she remembers to drink water on a regular basis but occasionally does have quite a few hard stools. * Medical History: H ormone replacement therapy, Seasonal allergies, Thyroid cancer, Normal colonoscopy 2012 - c-scope 03/2022 with isolated hyperplastic polyp. * Surgical History: c -section x3 , hysterectomy , thyroidectomy , rereouted tear ducts , cholecystectomy , rt knee replacement , LT KNEE REPLACEMENT 07/21/24. * Hospitalization/Major Diagno stic Procedure: s urgeries only . * Family History: F ather: , heart disease-several Mi, family history unknown . M other: , heart trouble-pacemaker, thyroid cancer, borderline diabetic, breast cancer, sarccoidosis, histoplasmosis, family history unknown . P aternal Grand Father: . P aternal Grand Mother: . M aternal Grand Father: . M aternal Grand Mother: . S iblings: alive, thyroid cancer-sisters. 1 brother(s) , 3 sister(s) . 2 son(s) , 1 daughter(s) - healthy. .? * Social History: S moking A re you a:: nonsmoker. R ecreational drug use: no. Exercise: no. Home smoke detector use: yes. Caffeine: yes, frequency: 8 cups a day. Living Will: Yes. Alcohol: no. Travel outside [place]: no. 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 * Medications: T aking Ozempic (0.25 or 0.5 MG/DOSE) 2 MG/3ML Solution Pen-injector as directed Subcutaneous , Taking Aspirin Low Dose 81 MG Tablet Delayed Release 1 tab(s) orally twice a day , Taking Synthroid 112 MCG Tablet 1 tab(s) orally once a day , Taking Promethazine-DM 6.25-15 MG/5ML Syrup 5 mL orally every 6 hours , Taking Acetaminophen-Codeine 300-30 MG Tablet 1 tablet as needed Orally every 6 hrs , Taking Pregabalin 50 MG Capsule 1 capsule Orally twice a day as needed for nerve pain , Taking Vitamin D (Ergocalciferol) 1.25 MG (49252 UT) Capsule 1 cap(s) orally twice weekly , Taking Fluticasone Propionate 50 MCG/ACT Suspension as directed in each nostril once a day , Taking Metoprolol Succinate ER 25 MG Tablet Extended Release 24 Hour TAKE 1/2 TABLET BY MOUTH EVERY DAY , Taking Arthritis Pain Reliever 1 % Gel 2 gm applied topically 4 times a day , Notes to Pharmacist: prn, Taking Diclofenac Sodium 50 MG Tablet Delayed Release 1 tablet as needed Orally Twice a day , Taking Losartan Potassium-HCTZ 100-25 MG Tablet TAKE 1 TABLET BY MOUTH EVERY DAY , Discontinued Macrobid 100 MG Capsule 1 capsule with food Orally every 12 hrs , Medication List reviewed and reconciled with the patient * Allergies: S ULFA. Objective: * Vitals: N patricia: dw, Pain: 4, Temp: 98, RR: 18, HR: 82, BP: 130/80, Ht: 5 ft 4 in, Wt: 194, BMI:33.3. * Examination: G eneral Examination: P leasant and talkative, lungs clear, heart rate regular. She has some concerns about some clavicle irregularities on the left and it does appear that her left clavicle is more prominent but no actual masses. Right clavicle is slightly smaller. Lungs are well-expanded. Right hip passive range of motion with limited pain. Left hip clear. Assessment: * Assessment: 1. C lavicle enlargement - M89.319 (Primary) 2 . C onstipation, chronic - K59.09 3 . M orbid obesity - E66.01 4 . A rthritis of right hip - M16.11 Plan: * Treatment: ?Imaging: X ray : Sternum* Notes: Asymmetry noted. Will check x-rays of clavicle and sternum and reevaluate.??2.?Constipation, chronic? Notes: Discussed drinking water. Discussed doing Senokot twice daily and using MiraLAX every morning with a hot beverage. She will try this. This seems to be more of a side effect of Ozempic but is manageable if she pays attention to nutrition and hydration??3.?Morbid obesity? Notes: Very successful with even low-dose semaglutide, gave samples for 2 more months and 0.25 weekly semaglutide??4.?Arthritis of right hip? Notes: Injection helped temporarily. She will call back to [facility] and see about other options for further intervention?? * Procedure Codes: G 2211 Complex e/m visit add on * Follow Up: p rn * * Sign off status: Completed true * Provider: Severiano Han MD Date: 08/01/2024 Generated for Morgan correa/Mahesh/eTransmitting on: 08/08/2024 01:56 PM EST History and Physical Notes * HPI (History of Present Illness) Category Sub-Category Detail Notes Category Not es gen Here to follow-up her efforts at weight loss and her other medical problems. Toddyvette is under great job for her. It is prohibitively expensive and I have been providing her with some samples because of her morbid obesity and multiple comorbidities that mandate better weight loss. She is feels good with this. Her foot pain is almost resolved. She does have hip pain, had a shot in the hip at [facility] about 5 days ago, and did well but today's it is little worse. She complains of constipation, this is manageable if she remembers to drink water on a regular basis but occasionally does have quite a few hard stools Examination Category Sub-Category Detail Notes Category Not es General Examination Pleasant and talkative, lungs clear, heart rate regular. She has some concerns about some clavicle irregularities on the left and it does appear that her left clavicle is more prominent but no actual masses. Right clavicle is slightly smaller. Lungs are well-expanded. Right hip passive range of motion with limited pain. Left hip clear
--- OUTSIDE RECORDS SUMMARY | 2025-06-08 13:56 | XMS_ITS | Encounter Summary ---
Author Organization [facility] Address [address] [place] [address] Care Team Providers Care Lab Director Name Role Phone Rubio Han MD Primary Care Provider [phone] Reason for Visit * Reason Onset Date Comments Med Refill 10/27/2024 Encounter Details Date Type Department Care Team (Late st Contact Info) Description 10/27/2024 Refill [facility] [address] [place] [phone] Brendon Gonsales MD [facility] [employer] [address] Social History Tobacco Use Types Packs/Day Years Used Date Smoking Tobacco: Never Passive Smoke Exposure: Never Smokeless Tobacco: Never Alcohol Use Standard Drinks/Week Comments Never 0 (1 standard drink = 0.6 oz pur e alcohol) Comments No Sex and Gender Information Value Date Recorded Sex Assigned at Not on file Legal Sex Female 8:53 AM EDT Gender Identity Not on file Sexual Orientation Not on file documented as of this encounter Miscellaneous Notes * Telephone Encounter - Kiana Cabrera MA - 10/28/2024 8:56 AM EDT Rx Refill Note Requested Prescriptions Pending Prescriptions Disp Refills levothyroxine (SYNTHROID, LEVOTHROID) 100 MCG tablet 90 tablet 2 Sig: Take 1 tablet by mouth Daily. Last office visit with prescribing clinician: 12/05/2023 Next office visit with prescribing clinician: 10/27/2024 Kiana Cabrera MA 10/28/24, 08:56 EDT * Telephone Encounter - Lanette Hoover RegSched Rep - 10/27/2024 4:26 PM EDT Caller: SánchezAlina Relationship: Self Best call back number: [phone] Requested Prescriptions: Requested Prescriptions Pending Prescriptions Disp Refills levothyroxine (SYNTHROID, LEVOTHROID) 100 MCG tablet 90 tablet 2 Sig: Take 1 tablet by mouth Daily. Pharmacy where request should be sent: [id number] [phone] [facility] [phone] FX [[id number]] Last office visit with prescribing clinician: 12/05/2023 Last telemedicine visit with prescribing clinician: Visit date not found Next office visit with prescribing clinician: 03/04/2025 Additional details provided by patient: Does the patient have less than a 3 day supply: [x] Yes [] No Would you like a call back once the refill request has been completed: [] Yes [] No If the office needs to give you a call back, can they leave a voicemail: [] Yes [] No Arsenio Bridges 10/27/24 16:26 EDT documented in this encounter Plan of Treatment Upcoming Encounters Date Type Department Care Team (Late st Contact Info) Description 03/04/2026 2:00 PM EDT Office Visit [facility] END[facility] [address] [address] Brendon Gonsales MD [address] [address] documented as of this encounter Visit Diagnoses Not on filedocumented in this encounter Care Teams Lab Director Relationship Specialty Start Date End Date Rubio Han MD [address] [place] [address] [place] [address] PCP - General Adolescent Medicine 02/24/21 documented as of this encounter
--- OUTSIDE RECORDS SUMMARY | 2025-06-08 13:56 | XMS_ITS | Clinical Summary ---
Author Organization [facility] Address [facility] [place] [address] Care Team Providers Care Stubber Name Role Phone Pcp, No Primary Care Provider [phone] Source Comments This information has been disclosed to you from confidential records protectedfrom disclosure by state law. You shall make no further disclosure of thisinformation without the specific, written, and informed release of theindividual to whom it pertains, or as otherwise permitted by law. A generalauthorization for the release of medical or other information is not sufficientfor the purposes of therelease of HIV test results or diagnoses. [id number] Social History Tobacco Use Types Packs/Day Years Used Date Smoking Tobacco: Never Assessed Comments Unknown Sex and Gender Information Value Date Recorded Sex Assigned at Not on file Legal Sex Female 11:57 AM EST Gender Identity Not on file Sexual Orientation Not on file Plan of Treatment Not on file Insurance [place] [id number] BL[employer] Care Teams Stubber Relationship Specialty Start Date End Date PcpMadina No Address PCP - General 08/23/23
--- OUTSIDE RECORDS SUMMARY | 2025-06-08 13:56 | XMS_ITS | Patient Health Record ---
Author Organization [facility] Address [address] [place], [place] [address] Care Team Providers Care Film Reader Name Role Phone Rubio Han Primary Care Provider [phone] Lizz Luz Marina Unavailable [phone] McYoli Donovan Unavailable [phone] Migration, Provider Unavailable Unavailable Allergies Allergen (clinical drug ingredient) Drug/Non Drug Allergy documented on EMR Reaction Allergy Type Onset Date Status SULFA (uncoded) Unknown Allergy Acti ve Results Component Value Reference Range Notes TSH W/REFLEX TO FT4 (66871) Reviewed date:08/10/2024 12:31:31 PM Interpretation: Performing Lab:[facility] [email or web address] [id number] [employer], [id number] Eliezer Coon Notes/Report: NON-FASTING; NON-FASTING; NON-FASTING TSH W/REFLEX TO FT4 4.13 0.40-4.50 mIU/L CBC (INCLUDES DIFF/PLT) (639 9) Reviewed date:08/10/2024 12:31:31 PM Interpretation: Performing Lab:[id number] [employer], FreeLunchedUljsYU[address] Eliezer Coon Notes/Report: NON-FASTING; NON-FASTING; NON-FASTING WHITE BLOOD CELL COUNT 5.3 3.8-10.8 Thousand/ uL RED BLOOD CELL COUNT 4.08 3.80-5.10 Million/uL HEMOGLOBIN 12.8 11.7-15.5 g/dL HEMATOCRIT 38.4 35.0-45.0 % MCV 94.1 80.0-100.0 fL MCH 31.4 27.0-33.0 pg MCHC 33.3 32.0-36.0 g/dL For adults, a slight decrease in the calculated MCHC value (in the range of 30 to 32 g/dL) is most likely not clinically significant; however, it should be interpreted with caution in correlation with other red cell parameters and the patient's clinical condition. RDW 13.1 11.0-15.0 % PLATELET COUNT 287 140-400 Thousand/uL MPV 10.7 7.5-12.5 fL ABSOLUTE NEUTROPHILS [phone] cells/uL ABSOLUTE LYMPHOCYTES [phone] cells/uL ABSOLUTE MONOCYTES 318 200-950 cells/uL ABSOLUTE EOSINOPHILS 307 15-500 cells/uL ABSOLUTE BASOPHILS 48 0-200 cells/uL NEUTROPHILS 61 LYMPHOCYTES 26.3 MONOCYTES 6.0 EOSINOPHILS 5.8 BASOPHILS 0.9 COMPREHENSIVE METABOLIC PANE L (74044) Reviewed date:08/10/2024 12:31:31 PM Interpretation: Performing Lab:[facility], [email or web address], [facility] ServicesIiluIQ[address] Eliezer Coon Notes/Report: NON-FASTING; NON-FASTING; NON-FASTING GLUCOSE 86 65-99 mg/dL Fasting reference interval UREA NITROGEN (BUN) 17 7-25 mg/dL CREATININE 0.87 0.50-1.05 mg/dL EGFR 74 > OR = 60 mL/min/1.73m2 BUN/CREATININE RATIO SEE NOTE: 6-22 (calc) Not Reported: BUN and Creatinine are within reference range. SODIUM 143 135-146 mmol/L POTASSIUM 4.1 3.5-5.3 mmol/L CHLORIDE 107 98-110 mmol/L CARBON DIOXIDE 25 20-32 mmol/L CALCIUM 9.0 8.6-10.4 mg/dL PROTEIN, TOTAL 7.1 6.1-8.1 g/dL ALBUMIN 4.3 3.6-5.1 g/dL GLOBULIN 2.8 1.9-3.7 g/dL (calc) ALBUMIN/GLOBULIN RATIO 1.5 1.0-2.5 (calc) BILIRUBIN, TOTAL 0.4 0.2-1.2 mg/dL ALKALINE PHOSPHATASE 114 37-153 U/L AST 11 10-35 U/L ALT 8 6-29 U/L Urinalysis Reviewed date:08/06/2024 05:03:50 PM Interpretation: Performing Lab: Notes/Report: Color/Clarity yellow Leuk neg Nitrite neg Urobili 0.2 Protein trace pH 5.5 Blood neg Sp. Gr. 1.030 Ketone neg Bili neg Glucose neg Medications Medication SIG (Take, Route, Frequency, Duration) Notes Start Date End Date Status Aspirin Low Dose 81 MG 1 tab(s) orally t wice a day Active Synthroid 112 MCG 1 tab(s) orally once a day; Duration: 90 days Active Promethazine-DM 6.25-15 MG/5ML 5 mL orally every 6 hours; Duration: 10 days 09/23/2024 Active Acetaminophen-Codeine 300-30 MG 1 tablet as needed Orally every 6 hrs; Duration: 10 days 11/23/2024 Active Pregabalin 50 MG 1 capsule Orally twi ce a day as needed for nerve pain; Duration: 90 days 01/06/2025 Active Vitamin D (Ergocalciferol) 1.25 MG (49163 UT) 1 cap(s) orally twice weekly; Duration: 84 days Active Fluticasone Propionate 50 MCG/ACT as directed in each nostril once a day; Duration: 30 days Active Metoprolol Succinate ER 25 MG TAKE 1/2 TABLET BY MOUTH EVERY DAY; Duration: 90 Active Arthritis Pain Reliever 1 % 2 gm applied topically 4 times a day; Duration: 30 days prn Active Diclofenac Sodium 50 MG 1 tablet as need ed Orally Twice a day; Duration: 30 days 03/25/2025 Active Ozempic (0.25 or 0.5 MG/DOSE) 2 MG/3ML as directed Subcutaneous Active Losartan Potassium-HCTZ 100-25 MG TAKE 1 TABLET BY MOUTH EVERY DAY; Duration: 30 Active Immunizations Vaccine Route Administration Date Status Comme nts Adacel (Tdap) IM Intramuscular 08/09/2009 Administered Adacel (Tdap) Unknown 10/27/2015 Administered Influenza-Fluzone 3+years (NON-MEDICARE) IM Intramuscular 08/13/2018 Administered Prevnar PCV-20 (Pneumococcal conjugate 20) IM Intramuscular 02/12/2023 Administered SHINGRIX IM Intramuscular 03/18/2024 Administered SHINGRIX IM Intramuscular 03/25/2025 Administered Problems Problem Type SNOMED Code ICD Code Onset Dates Problem Status W/U Status Risk Notes Problem Osteoarthritis of knee (514797309) Osteoarthritis of knee, unspecified (M17.9) Active confirmed Problem Overactive bladder (920711448) Overactive bladder (N32.81) Active confirmed Problem Hypothyroidism (36280048) Hypothyroidism (acquired) (E03.9) Active confirmed Problem Vitamin D deficiency (11792228) Vitamin D deficiency (E55.9) Active confirmed Problem Morbid obesity (397240159) Morbid obesity (E66.01) Active confirmed Problem Hyperlipidemia (87120013) Hyperlipemia, idiopathic familial (E78.5) Active confirmed Problem Essential hypertension (08043229) Hypertension, essential (I10) Active confirmed Problem Idiopathic peripheral neuropathy (68159984) Idiopathic peripheral neuropathy (G60.9) Active confirmed Problem Primary osteoarthritis (425248395) Primary osteoarthritis involving multiple joints (M15.0) Active confirmed Problem Osteoarthritis of knee (264159202) Primary osteoarthritis of right knee (M17.11) Active confirmed Problem Chronic serous otitis media (19536870) Bilateral chronic serous otitis media (H65.23) Active confirmed Problem Generalized osteoarthritis (661340869) Generalized osteoarthritis (M15.9) Active confirmed Problem Excessive daytime sleepiness - normal night sleep (312723986) Daytime sleepiness (R40.0) Active confirmed Problem Seasonal allergic rhinitis (148660819) Seasonal allergic rhinitis, unspecified allergic rhinitis trigger (J30.2) Active confirmed Problem Idiopathic gout (35298303) Acute idiopathic gout involving toe of left foot (M10.072) Active confirmed Problem Peripheral vascular disease (702540144) Claudication of lower extremity (I73.9) Active confirmed Problem Menopausal symptom (78543701) Menopausal symptoms (N95.1) Active confirmed Problem Neuropathy of both feet (G57.93) Active confirmed Problem Polyarthropathy (55349581) Arthritis of multiple sites (M13.0) Active confirmed Problem Cardiovascular stress test abnormal (555490394) Abnormal stress test (R94.39) Active confirmed Problem Arthritis of right hip (9912598385396536) Arthritis of right hip (M16.11) Active confirmed Vital Signs Heart Rate 82 /min 06/01/2025 Temperature 98 degrees Fahrenheit 06/01/2025 Blood pressure diastolic 80 mm Hg 06/01/2025 Height 5 ft 4 in in 06/01/2025 Blood pressure systolic 130 mm Hg 06/01/2025 Weight 194 lbs 06/01/2025 BMI 33.3 kg/m2 06/01/2025 Encounters Encounter Location Date Provider Diagnosis [facility] [address] [facility] [address] [place], [place] [address] 10/17/2024 Provider Migration Viral bronchitis J20.8 [facility] [address] [address] 07/03/2024 Yoli McNees Hypertension, essential I10 [facility] [address] [address] 07/10/2024 Yoli McNees Acute non-recurrent maxillary sinusitis J01.00 and Hypertension, essential I10 [facility] [address] [facility] [address] [place] [address] 08/06/2024 Luz Marinahiren DavisLizz Hypertension, essential I10 and Hypothyroidism (acquired) E03.9 [facility] [address] [facility] [address] [place] [address] 08/27/2024 Luz Marinahiren DavisLizz Hypertension, essential I10 [facility] [address] [facility] [address] [place] [address] 09/23/2024 Rubio Han COVID-19 U07.1 ; Vir al bronchitis J20.8 ; Abrasion of left lower extremity, initial encounter S80.812A and Fever in adult R50.9 [facility] [address] [address] 02/23/2025 Rubio Han Seasonal allergic rhinitis, unspecified allergic rhinitis trigger J30.2 ; Generalized osteoarthritis M15.9 ; Hypertension, essential I10 ; Malaise R53.81 ; Morbid obesity E66.01 and Family history of heart disease Z82.49 [facility] [address] [address] 03/25/2025 Rubio Han Hypertension, essential I10 ; Hypothyroidism (acquired) E03.9 ; Hyperlipemia, idiopathic familial E78.5 ; Morbid obesity E66.01 ; Encounter for administration of vaccine Z23 ; Encounter for immunization Z23 ; Routine medical exam Z00.00 and Primary osteoarthritis of right knee M17.11 [facility] [address] [address] 06/01/2025 Rubio Besson Clavicle enlargement M89.319 ; Constipation, chronic K59.09 ; Morbid obesity E66.01 and Arthritis of right hip M16.11 [facility] [address] [place] [address] 07/10/2024 Rubio Besson Acute non-recurrent maxillary sinusitis J01.00 [facility] [address] [place] [address] 07/30/2024 Yoli McNees [facility] [address] [place] [address] 07/30/2024 Yoli McNees [facility] [address] [place] [address] 08/04/2024 Yoli McNees Hypertension, essential I10 [facility] [address] [place] [address] 08/14/2024 Luz Marina Lizz Hypertension, essential I10 [facility] [address] [place] [address] 08/17/2024 Rubio Besson Hypertension, essential I10 [facility] [address] [place] [address] 09/11/2024 Yoli McNees [facility] [address] [facility] [address] [place] [address] 09/14/2024 Luz Marina Lizz [facility] [address] [place] [address] 11/23/2024 Rubio Besson [facility] [address] [address] 01/05/2025 Rubio Besson [facility] [address] [facility] [address] [place] [address] 03/16/2025 Rubio Besson [facility] [address] [facility] [address] [place] [address] 03/31/2025 Rubio Besson Assessments Encounter Date Diagnosis (ICD Code) Assessment Notes Treatment Notes Treatment Clinical Notes Section Notes 07/03/2024 Hypertension, essential (ICD-10 - I10) Increase metoprolol to 25 mg p.o. daily. I had losartan 25 mg p.o. daily. Discussed mechanism of action and side effect profile. If systolic blood pressure remains elevated over 150 in 5 days increase to 50 mg. Sooner return precautions discussed. Return to clinic in 1 week for blood pressure check 07/10/2024 Hypertension, essential (ICD-10 - I10) Well controlled. No changes made today 07/10/2024 Acute non-recurrent maxillary sinusitis (ICD-10 - J01.00) Discussed the etiology and expected course of acute sinusitis. Discussed the rationale for antibiotics use and the importance of completing the Augmentin prescription as prescribed. Dexamethasone given IM. Discussed supportive care with antihistamines and appropriate decongestants. Discussed the signs and symptoms of worsening infection that may indicate need for reassessment in clinic/ED. 07/10/2024 Acute non-recurrent maxillary sinusitis (ICD-10 - J01.00) 08/04/2024 Hypertension, essential (ICD-10 - I10) 08/06/2024 Hypothyroidism (acquired) (ICD-10 - E03.9) 08/06/2024 Hypertension, essential (ICD-10 - I10) UA today with trace amount of protein but otherwise unremarkable. Labs today as noted. Continue current regimen with the exception of stopping meloxicam which may be exacerbating her underlying hypertension. She will let me know next week how her blood pressure has been. I encouraged her to not check this more than once a day. Consider addition of hydrochlorothiazide if needed. 08/14/2024 Hypertension, essential (ICD-10 - I10) 08/17/2024 Hypertension, essential (ICD-10 - I10) 08/27/2024 Hypertension, essential (ICD-10 - I10) Recent labs were unremarkable. BP much better with addition of HCTZ. Continue therapy for knee replacement, good water intake, heart healthy diet. FU again in 6 months, sooner with any concerns. 09/23/2024 Viral bronchitis (ICD-10 - J20.8) COVID and flu testing done because of viral bronchitis, supportive care with dexamethasone/Phen ergan. 09/23/2024 COVID-19 (ICD-10 - U07.1) No wheezing. Good air movement. My standard COVID vitamin recommendations. No indication for Paxlovid. Discussed criteria to return. Discussed resting at home for the next couple days 10/17/2024 Viral bronchitis (ICD-10 - J20.8) 02/23/2025 Generalized osteoarthritis (ICD-10 - M15.9) recommended otc joint supplements: fish oil capsuls 2 per day, tumeric and osteo bi-flex Discussed pt seeing her orthopedist to manage osteoarthritis discussed weight loss affects on osteoarthrtis pt to use diclofenac as needed for pain management 02/23/2025 Seasonal allergic rhinitis, unspecified allergic rhinitis trigger (ICD-10 - J30.2) Reassured pt she can take antihistamines like zyrtec, claritin etc for her seasonal allergies. discussed avoidance of antihistamines with decongestants/pseu dophedrine due to vasoconstrictive properties affecting her hypertension 03/25/2025 Hypothyroidism (acquired) (ICD-10 - E03.9) Pt has been doing well on current medication regimen. No labs were drawn today and no changes were made to medications. 03/25/2025 Hypertension, essential (ICD-10 - I10) Pt BP today was 120/72. Pt BP is well controlled on current medication regimen and no changes made today. Pt was encouraged to continue consuming a balanced diet with water for hydration. Pt was encouraged to pursue physical activity as tolerated with her hip pain. 06/01/2025 Constipation, chronic (ICD-10 - K59.09) Discussed drinking water. Discussed doing Senokot twice daily and using MiraLAX every morning with a hot beverage. She will try this. This seems to be more of a side effect of Ozempic but is manageable if she pays attention to nutrition and hydration 06/01/2025 Clavicle enlargement (ICD-10 - M89.319) Asymmetry noted. Will check x-rays of clavicle and sternum and reevaluate. 06/01/2025 Morbid obesity (ICD-10 - E66.01) Very successful with even low-dose semaglutide, gave samples for 2 more months and 0.25 weekly semaglutide 03/25/2025 Hyperlipemia, idiopathic familial (ICD-10 - E78.5) Pt has been doing well on current medication regimen. Labs were not drawn today and no changes were made to medications. Pt was encouraged to continue consuming a balanced diet with nutritious variety. Pt was encouraged to incorporate physical activity as tolerated with her hip pain. 09/23/2024 Abrasion of left lower extremity, initial encounter (ICD-10 - S80.812A) Supportive care discussed, gentle cleansing. Vaseline to prevent further abrasions 02/23/2025 Hypertension, essential (ICD-10 - I10) continue losartan-hctz 100-25 mg discussed at home blood pressure measurements in the evening when she is feeling cold 09/23/2024 Fever in adult (ICD-10 - R50.9) 02/23/2025 Malaise (ICD-10 - R53.81) Discussed with patient to record blood pressure at home when having episodes of chills. Will follow up at next visit Discussed these episode could be due to her bp medication peaks and could possibly be hypotensive during the episodes 03/25/2025 Morbid obesity (ICD-10 - E66.01) Pt current BMI is 35.87. Pt has been on Wegovy therapy last month through a sample. Pt was given 2 sample boxes for Ozempic injections with instructions to inject 0.5 mg weekly. Pt reported weight loss of roughly 10 pounds through lifestyle changes and Wegovy since August. Pt was encouraged to continue consuming a balanced diet with nutritious variety. Pt was encouraged to consume adequate water and maintain hydration. Pt was encouraged to incorporate physical activity as tolerated with her hip pain for added benefit. Pt was told to follow up in 2 months to assess efficacy of medication. 06/01/2025 Arthritis of right hip (ICD-10 - M16.11) Injection helped temporarily. She will call back to [facility] and see about other options for further intervention 03/25/2025 Encounter for administration of vaccine (ICD-10 - Z23) Pt had her 2nd Shingrex vaccine today and tolerated it well. Pt declined a flu shot today. 02/23/2025 Morbid obesity (ICD-10 - E66.01) Discussed benefits of wegovy for weight management and reduction of symptoms of OA Pt given sample of wegovy in office today along with first dose in office today 02/23/2025 Family history of heart disease (ICD-10 - Z82.49) given pts high risk status GLP is indicated given current indications for GLP medication Personally administered dose. Discussed possible side effects. Reviewed symptoms of pancreatitis. Reviewed how to manage ongoing typical side effects of nausea 03/25/2025 Encounter for immunization (ICD-10 - Z23) 03/25/2025 Routine medical exam (ICD-10 - Z00.00) Patient is up-to-date with healthcare screening, thinking about flu shot, will get her second Shingrix. Has had mammograms and colonoscopies. No falls. 09/14 word recall. Depression screening negative. Supportive family. 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 Lifelong non-smoker, no alcohol use. 03/25/2025 Primary osteoarthritis of right knee (ICD-10 - M17.11) Plan Of Treatment Pending Test Test Name Order Date N-BUN, Creatinine 11/15/2006 X ray : Knee, Left 03/24/2014 X ray : Knee, Right 03/24/2014 X ray : Clavicle 06/01/2025 Cardiac GXT 05/28/2009 Physical Therapy 08/25/2007 CT Scan : Soft Tissue, Neck 11/15/2006 CT Scan : Chest, With & Without Contrast 11/20/2011 CT Scan : Abdomen/Pelvis stone protocol 11/15/2006 X ray : Sternum 06/01/2025 H-CBC with AUTO DIFF 02/21/2013 H-CBC with AUTO DIFF 04/13/2017 H-SKIN CULTURE 06/04/2009 H-CMP 02/21/2013 H-CMP 04/13/2017 H-BUN 11/20/2011 H-CREATININE SERUM 11/20/2011 H-LIPID PANEL 04/13/2017 H-THYROID PANEL 2- (T3 Uptake, T4, Free Thyroxine Index, TSH) 04/13/2017 H-SED RATE 04/13/2017 H-PAIGE PROFILE 04/13/2017 H-MISC TEST 06/01/2015 C-URINE CULTURE 04/08/2014 M-Complete Blood Count Auto Diff 020 M-Comprehensive Metabolic Panel 09/18/19 20 M-Lipid Panel 09/18/2019 M-Thyroid Stimulating Hormone 09/18/2019 M-Vitamin B12 11/10/2020 M-Vitamin D 25 Hydroxy 11/10/2020 M-COVID 19 PCR SEND OUT 09/28/2021 Rapid Covid/Flu A-B Combo 09/23/2024 Future Test Test Name Order Date H-CBC with AUTO DIFF 12/04/2014 H-VITAMIN B12 12/04/2014 H-CMP 12/04/2014 H-TSH 12/04/2014 H-VIT D, 25-HYDROXY 12/04/2014 M-Complete Blood Count Auto Diff 019 M-Comprehensive Metabolic Panel 08/14/19 M-Lipid Panel 08/14/2018 M-Thyroid Panel 08/14/2018 LIPID PANEL, STANDARD (7600) 01/16/2023 COMPREHENSIVE METABOLIC PANEL (39873) CBC (INCLUDES DIFF/PLT) (6399) 3 HEMOGLOBIN A1c (496) 01/16/2023 VITAMIN B12 (927) 01/16/2023 TSH W/REFLEX TO FT4 (52722) 01/16/2023 VITAMIN D,25-OH,TOTAL,IA (31419) 023 Next Appt Details Provider Name:Rubio Han, 08/03/2025 04:15:00 PM, [address], [address], Insurance Providers Payer Name Payer Address Payer Phone Subscriber Number Group Number Insured Name Patient Relationship to Insured Coverage Start Date Coverage End Date [place] [address] [place] [address] [id number] Alina Pozo Self - patient is the insured [facility] [address] [place] [address] [id number] Alina Pozo Self - patient is the insured Medications Administered Medication Instructions Date of Administration Dosage Notes Bicillin CR 06/05/2013 1,200,000/2ml mL Ceftriaxone 500 09/14/2013 500 mg Ceftriaxone 500 08/23/2014 500 mg Dexamethasone 4mg Injection 07/10/2024 4 mg Kenalog 40mg 07/16/2017 40 mg Kenalog 05/18/2013 1 mL Kenalog 06/05/2013 1 mL Kenalog 09/14/2013 1 Kenalog 06/19/2014 1 mL Kenalog 08/23/2014 1 mL Kenalog 12/01/2014 1 mL Kenalog 02/28/2015 1 mL Kenalog 04/06/2015 1 mL Kenalog 05/06/2015 1 mL Kenalog 10/19/2015 1 mL Kenalog 05/05/2016 1 mL Kenalog 07/06/2016 1 mL Medical (General) History Medical History History ICD Code hormone replacement therapy seasonal allergies thyroid cancer Normal colonoscopy 2011 - c-scope 03/2022 with isolated hyperplastic polyp Surgical History Surgery Date(Month/Year) x3 hysterectomy thyroidectomy rereouted tear ducts cholecystectomy rt knee replacement LT KNEE REPLACEMENT 07/21/24 Hospitalization History Reason Date(Month/Year) surgeries only
--- OUTSIDE RECORDS SUMMARY | 2025-06-08 13:56 | XMS_ITS | Patient Health Record ---
Author Organization [facility] Main Address [address] [place] [address] Support Name Relationship Address Phone Arielle Pozo Guarantor Unknown [phone] Allergies Allergen (clinical drug ingredient) Drug/Non Drug Allergy documented on EMR Reaction Allergy Type Onset Date Status Substance with sulfonamide structure and antibacterial mechanism of action (substance) Sulfa Antibiotics hives Drug Allergy Active Reason For Referral No Information Medications Medication SIG (Take, Route, Frequency, Duration) Notes Start Date End Date Status CeleBREX 100 MG 1 capsule with food Orally Twice a day Active Tylenol Active Synthroid 75 MCG 1 tablet in the morn ing on an empty stomach Orally Once a day Active Metoprolol Tartrate 25 MG 1/2 tablet wit h food Orally daily Active Tessalon Perles 100 MG 1 capsule as need ed Orally every 8 hours; Duration: 10 days 05/16/2021 Active Zithromax Z-Evert 250 MG 2 tablets on the first day, then 1 tablet daily for 4 days Orally Once a day; Duration: 5 day(s) 05/16/2021 Active Plan Of Treatment No Information Insurance Providers Payer Name Payer Address Payer Phone Subscriber Number Group Number Insured Name Patient Relationship to Insured Coverage Start Date Coverage End Date [facility] [address] [place] [address] [id number] Arielle Pozo Self - patient is the insured Medical (General) History Medical History History ICD Code thyroid disorder cancer Surgical History Surgery Date(Month/Year) thyroidectomy, complete
--- OUTSIDE RECORDS SUMMARY | 2025-06-08 13:56 | XMS_ITS | Clinical Summary ---
Author Organization Healthcare Address [address] [place] [address] Care Team Providers Care Staffing Operations Manager Name Role Phone Rubio Han MD Primary Care Provider [phone] Family History Medical History Relation Name Comments Thyroid cancer Sister 1 Thyroid disease Sister 2 Relation Name Status Comments Sister 1 Sister 2 Social History Tobacco Use Types Packs/Day Years Used Date Smoking Tobacco: Never Alcohol Use Standard Drinks/Week Comments No 0 (1 standard drink = 0.6 oz pure alcohol) Alcoholic Drinks/day: Never Drank Alcohol Comments Unknown Sex and Gender Information Value Date Recorded Sex Assigned at Not on file Legal Sex Female 7:38 PM EDT Gender Identity Not on file Sexual Orientation Not on file Last Filed Vital Signs Vital Sign Reading Time Taken Comments Blood Pressure - - Pulse - - Temperature - - Respiratory Rate - - Oxygen Saturation - - Inhaled Oxygen Concentration - - Weight 99.8 kg (220 lb) 01/04/2016 2:14 PM EDT Height 165.1 cm (5' 5 ) 01/04/2016 2:14 PM EDT Body Mass Index 36.61 01/04/2016 2:14 PM EDT Plan of Treatment Not on file Care Teams Staffing Operations Manager Relationship Specialty Start Date End Date Rubio Han MD [address] [place] [id number] PCP - General 11/25/20
--- OUTSIDE RECORDS SUMMARY | 2025-06-08 13:56 | XMS_ITS | Encounter Summary ---
Author Organization Healthcare Address [address] [place] [address] Care Team Providers Care Double Cutter Name Role Phone Rubio Han MD Primary Care Provider [phone] Encounter Details Date Type Department Care Team (Late st Contact Info) Description 07/14/2021 Lab Requisition [facility] [address] [place] [address] Brendon Gonsales MD [address] [id number] Encounter for general adult medical examination without abnormal findings Social History Tobacco Use Types Packs/Day Years [...] on file documented as of this encounter Plan of Treatment Not on file documented as of this encounter Procedures Procedure Name Priority Date/Time Associated Diagnosis Comments THYROGLOBULIN (INHOUSE- REFLEX ONLY) Routine 07/13/2021 2:16 PM EST Encounter for general adult medical examination without abnormal findings THYROGLOBULIN ANTIBODY Routine 2:16 PM EST Encounter for general adult medical examination without abnormal findings documented in this encounter Results * Thyroglobulin (InHouse) (07/13/2021 2:16 PM EST) Thyroglobulin (Inhouse) 0.2 <=34.0 ng/mL 07/14/2021 4:15 PM EST [facility] Blood Venous blood specimen / Unknown 07/13/2021 2:16 PM EST 07/14/2021 2:26 PM EST Narrative [facility] - 07/14/2021 4:15 PM EST Thyroglobulin measured by 2nd generation immunoassay. Thyroglobulin antibodies may interfere with thyroglobulin measurements. Consider ordering Thyroglobulin measurement by LC/MS/MS if TG antibody concentrations are elevated. us Brendon Gonsales MD LAB BLOOD ORDERABLES Final Resul t Performing Organization Address [facility] de Phone Number [facility]ALTH[facility] [address] [place] [address] * Thyroglobulin Antibody (07/13/2021 2:16 PM EST) Thyroglobulin Antibody <1.0 <4.0 IU/mL 07/14/2021 4:15 PM EST [facility] Blood Venous blood specimen / Unknown 07/13/2021 2:16 PM EST 07/14/2021 2:26 PM EST us Brendon Gonsales MD LAB BLOOD ORDERABLES Final Resul t Performing Organization Address [facility] Phone Number [facility]ALTHCARE [facility] [address] [place] [address] documented in this encounter Visit Diagnoses Diagnosis Encounter for general adult medical examination without abnormal findings documented in this encounter Care Teams Double Cutter Relationship Specialty Start Date End Date Rubio Han MD [address] [place] [address] PCP - General 11/25/20 documented as of this encounter
--- OUTSIDE RECORDS SUMMARY | 2025-06-08 13:56 | XMS_ITS | Clinical Summary ---
Author Organization [facility] yste Address [address] [place] [address] Care Team Providers Care Outcomes Manager Name Role Phone Rubio Han MD Primary Care Provider [phone] Allergies Active Allergy Reactions Criticality Noted Date Comments Sulfa Antibiotics Rash Low 06/20/2020 Medications vitamin D (ERGOCALCIFEROL ) 1.25 MG (52634 UT) capsule capsule Take 1 capsule by mouth 2 (Two) Times a Week. 1 Active metoprolol succinate XL (TOPROL-XL) 25 MG 24 hr tablet Take 0.5 tablets by mouth Daily. 1 Active fluticasone (FLONASE) 50 MCG/ACT nasal spray 1 spray by Each Nare route Daily. 4 Active pregabalin (LYRICA) 50 MG capsule As Needed. 3 Active losartan-hydroc hlorothiazide (HYZAAR) 100-25 MG per tablet Take 1 tablet by mouth Daily. Active Semaglutide-Jarred ght Management (Wegovy) 0.25 MG/0.5ML solution auto-injector Inject under the skin into the appropriate area as directed. Active levothyroxine (Synthroid) 112 MCG tablet Take 1 tablet by mouth Daily. 90 tablet 3 5 03/09/20 26 Active Active Problems Problem Noted Date Diagnosed Date Arthritis 03/04/2025 Postoperative hypothyroidism 06/20/2020 Overview (07/13/2021): Following thyroidectomy in 2007 Assessment & Plan (03/04/2025 2:37 PM EDT): Clinically euthyroid. Thyroid levels ordered. Medication to be adjusted accordingly. Assessment & Plan (12/05/2023 4:21 PM EDT): Clinically euthyroid. Thyroid levels ordered. Medication to be adjusted accordingly. Assessment & Plan (07/13/2022 3:29 PM EST): Stable Clinically euthyroid. Thyroid levels ordered. Medication to be adjusted accordingly. High bp reading reviewed with pt. She monitors at home and It is always normal Assessment & Plan (07/13/2021 2:07 PM EST): Clinically euthyroid. Thyroid levels ordered. Medication to be adjusted accordingly. I HAVE OBJECTION TO TRYING GENERIC Assessment & Plan (06/20/2020 3:16 PM EST): Clinically euthyorid but due for tsh Personal history of malignant neoplasm of thyroi d 06/20/2020 Overview (12/05/2023): Surgery and I 131 therapy in 2007 for 2 small foci of PTC. Scan negative in 2009 Last ultrasound negative in 2017 tg negative in 2018 and 2019 tg negative in 2020 Tg negative in 2021 Assessment & Plan (03/04/2025 4:29 PM EDT): No clinical evidence of recurrence. Will check tg to confirm Assessment & Plan (12/05/2023 4:21 PM EDT): No clinical evidence of recurrence. Will check tg to confirm Assessment & Plan (07/13/2021 2:07 PM EST): NO CLINICAL EVIDENCE FOR RECURRENCE WILL CHECK TG LEVEL TO CONFIRM Assessment & Plan (06/20/2020 3:17 PM EST): Neck exam benign. Will need tg Encounters Date Type Department Care Team Description 03/08/2025 Results Follow-Up [facility] [address] [facility] [address] [place] [address] Brendon Gonsales MD from Last 3 Months Family History Medical History Relation Name Comments Obesity Brother Ray Thyroid disease Brother Ray Alzheimer's disease Father E R Ramin Hyperlipidemia Father E R Ramin Prostate cancer Father E R Ramin Breast cancer Mother Britt Cancer Mother Britt Hypertension Mother Britt Obesity Mother Britt Osteoporosis Mother Britt Sarcoidosis Mother Britt Thyroid disease Mother Britt Breast cancer Sister 1 Kori Cancer Sister 1 Kori Thyroid cancer Sister 1 Kori Thyroid disease Sister 1 Kori Cancer Sister 2 Tari Shweta Obesity Sister 2 Tari Shweta Thyroid disease Sister 2 Tari Shweta Obesity Sister 3 Ashley Wiggins Thyroid disease Sister 3 Ashley Wiggins Ovarian cancer Neg Hx Relation Name Status Comments Brother Ray Father E R Ramin Mother Britt Sister 1 Kori Sister 2 Tari Gomezef Alive Sister 3 Ashley Bergerons Alive Social History Tobacco Use Types Packs/Day Years Used Date Smoking Tobacco: Never Passive Smoke Exposure: Never Smokeless Tobacco: Never Tobacco Cessation:Counseling Given: Not Answered Alcohol Use Standard Drinks/Week Comments Never 0 (1 standard drink = 0.6 oz pur e alcohol) PHQ-2 Answer Date Recorded Patient Health Questionnaire-9 Score 3 03/02/2025 Comments No Sex and Gender Information Value Date Recorded Sex Assigned at Not on file Legal Sex Female 8:53 AM EDT Gender Identity Not on file Sexual Orientation Not on file Last Filed Vital Signs Vital Sign Reading Time Taken Comments Blood Pressure 122/78 03/04/2025 2:23 PM EDT Pulse 70 03/04/2025 2:23 PM EDT Temperature 36.3 C (97.3 F) 06/20/2020 2:19 PM EST Respiratory Rate 16 06/20/2020 2:19 PM EST Oxygen Saturation 99% 03/04/2025 2:23 PM EDT Inhaled Oxygen Concentration - - Weight 97.1 kg (214 lb) 03/04/2025 2:23 PM EDT Height 162.6 cm (5' 4 ) 03/04/2025 2:23 PM EDT Body Mass Index 36.73 03/04/2025 2:23 PM EDT Plan of Treatment Upcoming Encounters Date Type Department Care Team (Late st Contact Info) Description 03/04/2026 2:00 PM EDT Office Visit [facility] [address] [facility] [address] [place] [id number] Brendon Gonsales MD [address] [facility] [address] [place] [address] Health Maintenance Due Date Last Done Comments COLOGUARD 01/28/2004 COLON CANCER SCREENING 5 YEA R SIGMOIDOSCOPY 01/28/2004 COLONOSCOPY 01/28/2004 COLORECTAL CANCER SCREENING 01/28/2004 CT COLONOGRAPHY 01/28/2004 FECAL OCCULT BLOOD TEST 01/28/2004 FIT Testing (1 year) 01/28/2004 ANNUAL WELLNESS VISIT 06/20/2020 HEPATITIS C SCREENING 06/20/2020 COVID-19 Vaccine (3 - Pfizer risk series) 02/14/2021 01/17/2021, 12/26/2020 DXA SCAN 02/02/2022 02/03/2020 INFLUENZA VACCINE 02/12/2025 07/15/2019, 08/13/2018 TDAP/TD VACCINES (2 - Td or Tdap) 10/26/2025 016 MAMMOGRAM 01/11/2027 01/11/2025, 12/14, 01/29/2024, Additional history exists Pneumococcal Vaccine 50+ Completed 02/12/2023 ZOSTER VACCINE Completed 04/13/2025, 03/18/2024 Procedures Procedure Name Priority Date/Time Associated Diagnosis Comments MAMMO SCREENING DIGITAL TOMOSYNTHESIS BILATERAL W CAD Routine 01/07/2025 11:44 AM EDT Visit for screening mammogram from Last 3 Months or Most Recently Relevant to Health Maintenance Results * Mammo Screening Digital Tomosynthesis Bilateral With CAD (01/07/2025 11:44 AM EDT) Anatomical Region Laterality Modality Breast N/A Mammography 01/11/2025 12:0 7 PM EDT Impressions 01/11/2025 12:09 PM EDT No suspicious abnormality identified. OVERALL ASSESSMENT: ACR BI-RADS CATEGORY: 1, NEGATIVE: Recommend continued routine annual screening mammogram. Patient's calculated lifetime risk by Andressa model is 23.19%. Consideration for annual high screening breast MRI is recommended. The standard false-negative rate of mammography is between 10% and 25%. Complex patterns or increased breast density will markedly elevate the false-negative rate of mammography. A letter, in lay terminology, with the results of this exam will be mailed to the patient. 01/11/2025 12:09 PM by Marianna Russo MD on Narrative 01/11/2025 12:09 PM EDT BILATERAL DIGITAL SCREENING MAMMOGRAM WITH TOMOSYNTHESIS CLINICAL INDICATION: Screening mammogram. TECHNIQUE: Bilateral low dose full field digital breast tomosynthesis imaging was performed. CAD was utilized. COMPARISON: Priors dating to 09/05/2017. FINDINGS: The breasts are heterogeneously dense, which may obscure small masses. RIGHT BREAST: No suspicious masses, calcifications, or areas of distortion are seen. LEFT BREAST: No suspicious masses, calcifications, or areas of distortion are seen. Alma Liu MD IMG MAMMOGRAPHY ORDERABLES Lexi l Result from Last 3 Months or Most Recently Relevant to Health Maintenance Insurance MEDICARE A & B [facility] Care Teams Outcomes Manager Relationship Specialty Start Date End Date Rubio Han MD [address] [place] [facility] [address] [facility] [address] [place] [address] PCP - General Adolescent Medicine 02/24/21
--- OUTSIDE RECORDS SUMMARY | 2025-06-08 13:56 | XMS_ITS | Encounter Summary ---
Author Organization [facility] Address [address] [place] [address] Care Team Providers Care Cargo Station Worker Name Role Phone Rubio Han MD Primary Care Provider [phone] Encounter Details Date Type Department Care Team (Late Contact Info) Description 03/08/2025 Results Follow-Up [facility] [address] [address] Brendon Gonsales MD [address] [place] [phone] Social History Tobacco Use Types Packs/Day [...] as of this encounter Plan of Treatment Upcoming Encounters Date Type Department Care Team (Late Contact Info) Description 03/04/2026 2:00 PM EDT Office Visit [facility] [address] [address] Brendon Gonsales MD [address] [place] [address] documented as of this encounter Visit Diagnoses Not on filedocumented in this encounter Care Teams Cargo Station Worker Relationship Specialty Start Date End Date Rubio Han MD [address] [facility] [address] [place] [address] PCP - General Adolescent Medicine 02/24/21 documented as of this encounter
--- NOTE | 2025-06-08 13:57 | XR_ITS ---
FINAL REPORT CLINICAL HISTORY: CLAVICLE ENLARGEMENT FINDINGS: 2 views of the left clavicle were obtained. There is no prior exam for comparison. There is no acute fracture. The acromioclavicular joint is intact. There is no evidence of AC separation. There is no soft tissue abnormality. IMPRESSION: No acute process. Reviewed, Interpreted and Dictated by Amelie Moody MD Transcribed by Indira Maria Authenticated and [facility]
--- NOTE | 2025-06-08 13:57 | XR_ITS ---
FINAL REPORT CLINICAL HISTORY: LT medial CLAVICLE ENLARGEMENT FINDINGS: Oblique and lateral views of the sternum were obtained. There is no prior exam for comparison. There is no acute osseous abnormality. Soft tissues are without acute abnormality. IMPRESSION: No acute osseous abnormality of the sternum. Reviewed, Interpreted and Dictated by Amelie Moody MD Transcribed by Indira Maria Authenticated and [facility]
== END 2025-06-08 23:59 | disposition home or self-care (01) ==
LOC: RAD 13:52
PROVIDERS: PCP Internal Medicine Adolescent Medicine; Visit Provider Internal Medicine Adolescent Medicine
DX: M89.312 Hypertrophy of bone, left shoulder (principal)
CPT/HCPCS: 71120; 73000